=== PATIENT | female | born 1970 | race Caucasian/White ===

== ENCOUNTER 2018-09-05 15:25 | Emergency (ER) | payer MEDICARE, OTHER ==
[~2018-09-05] VITALS: Ht 162.6 cm; Wt 87.5 kg
[2018-09-05 16:16] LABS: AMPHETAMINE SCREEN, URINE NEGATIVE (NEGATIVE); BARBITURATE SCREEN URINE NEGATIVE (NEGATIVE); BENZODIAZEPINES SCREEN URINE POSITIVE (NEGATIVE); CANNABINOID SCREEN, URINE NEGATIVE (NEGATIVE); COCAINE SCREEN URINE NEGATIVE (NEGATIVE); METHADONE STAT NEGATIVE (NEGATIVE); METHAMPHETAMINE SCREEN URINE S NEGATIVE (NEGATIVE); OPIATE SCREEN URINE NEGATIVE (NEGATIVE); OXYCODONE STAT POSITIVE (NEGATIVE); PROPOXYPHENE STAT NEGATIVE (NEGATIVE); TRICYCLIC ANTIDEPRESSANTS SCRE POSITIVE (NEGATIVE)
[2018-09-05 16:18] LABS: BASOPHILS % (AUTO) 0 % (0-10); EOSINOPHILS # (AUTO) 0.2 10^3/uL (0.0-0.3); EOSINOPHILS % (AUTO) 4 % (0-10); HEMATOCRIT 36 % (35-52); LYMPHOCYTES # (AUTO) 1.8 X 10^3 (1.0-4.0); LYMPHOCYTES % (AUTO) 33 % (12-44); MEAN CORPUSCULAR HEMOGLOBIN 30 PG (25-34); MEAN CORPUSCULAR HGB CONC 30 G/DL (32-36); MEAN CORPUSCULAR VOLUME 91 FL (80-99); MEAN PLATELET VOLUME 9.1 FL (7.4-10.4); MONOCYTES # (AUTO) 0.4 X 10^3 (0.0-1.0); MONOCYTES % (AUTO) 6 % (0-12); NEUTROPHILS # (AUTO) 3.1 X 10^3 (1.8-7.8); NEUTROPHILS % (AUTO) 57 % (42-75); PLATELET COUNT 219 10^3/uL (130-400); RED CELL DISTRIBUTION WIDTH 12.6 % (10.0-14.5); WHITE BLOOD COUNT 5.5 10^3/uL (4.3-11.0)
[2018-09-05 16:25] LABS: CLARITY,URINE CLEAR; COLOR,URINE YELLOW; GLUCOSE, URINE (UA) NEGATIVE (NEGATIVE); KETONES,URINE NEGATIVE (NEGATIVE); PH,URINE 5.5 (5-9); PROTEIN,URINE TRACE (NEGATIVE)
[2018-09-05 16:26] LABS: BACTERIA,URINE MODERATE /HPF; BILIRUBIN,URINE NEGATIVE (NEGATIVE); HYALINE CASTS, URINE RARE /LPF; LEUKOCYTE ESTERASE ,URINE NEGATIVE (NEGATIVE); NITRITE,URINE NEGATIVE (NEGATIVE); RBC,URINE 0-2 /HPF; UROBILINOGEN,URINE NORMAL (NORMAL)
[2018-09-05 16:41] LABS: CARBON DIOXIDE 24 MMOL/L (21-32); CHLORIDE 105 MMOL/L (98-107); POTASSIUM 4.3 MMOL/L (3.6-5.0); SODIUM 139 MMOL/L (135-145)
[2018-09-05 16:42] LABS: ACETAMINOPHEN < 10 UG/ML (10-30); ALANINE AMINOTRANSFERASE 6 U/L (0-55); ALBUMIN 3.3 GM/DL (3.2-4.5); ALKALINE PHOSPHATASE 105 U/L (40-136); BILIRUBIN,TOTAL 0.3 MG/DL (0.1-1.0); BUN/CREATININE RATIO 10; GFR ESTIMATED > 60; GLUCOSE 107 MG/DL (70-105); SALICYLATE < 5.0 MG/DL (5.0-20.0); TOTAL PROTEIN 6.8 GM/DL (6.4-8.2)
--- NOTE | 2018-09-05 16:47 | ED General ---
General Chief Complaint: Psych/Social Disorder Stated Complaint: PSYCH EVAL History of Present Illness Date Seen by Provider: Sep 05, 2018 Time Seen by Provider: 16:44 Initial Comments Patient presents emergency department for evaluation of suicidal ideation. 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 She says that she had a prior attempts at killing herself with alcohol and medications. She denies any medical complaints and is in no obvious distress with normal vital signs. Of note she wanted it to be clear that she would have opioids and benzos in her system as she is prescribed his medications. (ЕЛЕНА ARAUJO DO) Allergies and Home Medications Allergies Coded Allergies: Sulfa (Sulfonamide Antibiotics) (Verified Allergy, Unknown, 09/05/18) carbamazepine (Verified Allergy, Unknown, 09/05/18) hydrocodone (Verified Allergy, Unknown, 09/05/18) lurasidone (Verified Allergy, Unknown, 09/05/18) metronidazole (Verified Allergy, Unknown, 09/05/18) Patient Home Medication List Home Medication List Reviewed: Yes (ЕЛЕНА ARAUJO DO) Review of Systems Review of Systems Constitutional: no symptoms reported Psychiatric/Neurological: Depressed (ЕЛЕНА ARAUJO DO) All Other Systems Reviewed Negative Unless Noted: Yes (ЕЛЕНА ARAUJO DO) Past Vbxdcou-Hmhzvr-Yodrjq Hx Patient Social History Recent Foreign Travel: No Contact w/Someone Who Travel: No (ЕЛЕНА ARAUJO DO) Physical Exam Vital Signs Vital Signs - First Documented 09/05/18 15:28 Temp 97.0 Pulse 84 Resp 18 B/P (MAP) 126/87 (100) Pulse Ox 99 (KASSIDY RUTLEDGE DO) Vital Signs Capillary Refill : (ЕЛЕНА ARAUJO DO) Height, Weight, BMI Height: '" Weight: lbs. oz. kg; BMI Method: General Appearance: No Apparent Distress, WD/WN HEENT: PERRL/EOMI Neck: Full Range of Motion Respiratory: Lungs Clear Cardiovascular: Regular Rate, Rhythm Gastrointestinal: Non Tender Extremity: No Pedal Edema Neurologic/Psychiatric: Alert, Oriented x3 Skin: Normal Color, Warm/Dry (ЕЛЕНА ARAUJO DO) Progress/Results/Core Measures Suspected Sepsis SIRS Temperature: Pulse: Respiratory Rate: Laboratory Tests 09/05/18 16:00: White Blood Count 5.5 Blood Pressure / Mean: Laboratory Tests 6/19/19 16:00: Creatinine 0.90, Platelet Count 219, Total Bilirubin 0.3 (ЕЛЕНА ARAUJO DO) Results/Orders Lab Results Laboratory Tests Test 09/05/18 15:40 09/05/18 16:00 Range/Units Urine Color YELLOW Urine Clarity CLEAR Urine pH 5.5 5-9 Urine Specific [place] >=1.030 1.016-1.022 Urine Protein TRACE NEGATIVE Urine Glucose (UA) NEGATIVE NEGATIVE Urine Ketones NEGATIVE NEGATIVE Urine Nitrite NEGATIVE NEGATIVE Urine Bilirubin NEGATIVE NEGATIVE Urine Urobilinogen NORMAL NORMAL MG/DL Urine Leukocyte Esterase NEGATIVE NEGATIVE Urine RBC (Auto) NEGATIVE NEGATIVE Urine RBC 0-2 /HPF Urine WBC NONE /HPF Urine Squamous Epithelial Cells 10-25 H /HPF Urine Crystals NONE /LPF Urine Bacteria MODERATE H /HPF Urine Casts PRESENT /LPF Urine Hyaline Casts RARE /LPF Urine Mucus NEGATIVE /LPF Urine Culture Indicated NO Urine Opiates Screen NEGATIVE NEGATIVE Urine Oxycodone Screen POSITIVE H NEGATIVE Urine Methadone Screen NEGATIVE NEGATIVE Urine Propoxyphene Screen NEGATIVE NEGATIVE Urine Barbiturates Screen NEGATIVE NEGATIVE Ur Tricyclic Antidepressants Screen POSITIVE H NEGATIVE Urine Phencyclidine Screen NEGATIVE NEGATIVE Urine Amphetamines Screen NEGATIVE NEGATIVE Urine Methamphetamines Screen NEGATIVE NEGATIVE Urine Benzodiazepines Screen POSITIVE H NEGATIVE Urine Cocaine Screen NEGATIVE NEGATIVE Urine Cannabinoids Screen NEGATIVE NEGATIVE White Blood Count 5.5 4.3-11.0 10^3/uL Red Blood Count 3.96 L 4.35-5.85 10^6/uL Hemoglobin 12.0 11.5-16.0 G/DL Hematocrit 36 35-52 % Mean Corpuscular Volume 91 80-99 FL Mean Corpuscular Hemoglobin 30 25-34 PG Mean Corpuscular Hemoglobin Concent 30 L 32-36 G/DL Red Cell Distribution Width 12.6 10.0-14.5 % Platelet Count 219 130-400 10^3/uL Mean Platelet Volume 9.1 7.4-10.4 FL Neutrophils (%) (Auto) 57 42-75 % Lymphocytes (%) (Auto) 33 12-44 % Monocytes (%) (Auto) 6 0-12 % Eosinophils (%) (Auto) 4 0-10 % Basophils (%) (Auto) 0 0-10 % Neutrophils # (Auto) 3.1 1.8-7.8 X 10^3 Lymphocytes # (Auto) 1.8 1.0-4.0 X 10^3 Monocytes # (Auto) 0.4 0.0-1.0 X 10^3 Eosinophils # (Auto) 0.2 0.0-0.3 10^3/uL Basophils # (Auto) 0.0 0.0-0.1 10^3/uL Sodium Level 139 135-145 MMOL/L Potassium Level 4.3 3.6-5.0 MMOL/L Chloride Level 105 98-107 MMOL/L Carbon Dioxide Level 24 21-32 MMOL/L Anion Gap 10 5-14 MMOL/L Blood Urea Nitrogen 9 7-18 MG/DL Creatinine 0.90 0.60-1.30 MG/DL Estimat Glomerular Filtration Rate > 60 BUN/Creatinine Ratio 10 Glucose Level 107 H 70-105 MG/DL Calcium Level 9.0 8.5-10.1 MG/DL Corrected Calcium 9.6 8.5-10.1 MG/DL Total Bilirubin 0.3 0.1-1.0 MG/DL Aspartate Amino Transf (AST/SGOT) 17 5-34 U/L Alanine Aminotransferase (ALT/SGPT) 6 0-55 U/L Alkaline Phosphatase 105 40-136 U/L Total Protein 6.8 6.4-8.2 GM/DL Albumin 3.3 3.2-4.5 GM/DL Salicylates Level < 5.0 L 5.0-20.0 MG/DL Acetaminophen Level < 10 L 10-30 UG/ML Serum Alcohol < 10 <10 MG/DL (KASSIDY RUTLEDGE DO) Vital Signs/I&O 09/05/18 15:28 Temp 97.0 Pulse 84 Resp 18 B/P (MAP) 126/87 (100) Pulse Ox 99 (KASSIDY RUTLEDGE DO) Vital Signs/I&O Capillary Refill : (ЕЛЕНА ARAUJO DO) Progress Note : Progress Note Patient is medically cleared from my standpoint so we will have her evaluated from a psychiatric standpoint. (ЕЛЕНА ARAUJO DO) Departure Impression Primary Impression: Suicidal ideation Disposition: 02 XFER SHT-TRM HOSP Condition: Stable Transfer Time Spoke to Accepting Phy: 23:19 Transfer Progress Notes Patient resected by Dr. Ventura at [facility] Method of Transfer: EMS (KASSIDY RUTLEDGE DO) Departure-Patient Inst. Referrals: NO,LOCAL PHYSICIAN (PCP) Primary Care Physician ЕЛЕНА ARAUJO DO Sep 05, 2018 16:47 KASSIDY RUTLEDGE DO Sep 05, 2018 23:20
--- NOTE | 2018-09-05 17:05 | NUR ---
[facility] is being contacted at this time for screening. Pt information being provided at this time.
--- NOTE | 2018-09-05 17:10 | NUR ---
Tracking number from [facility] is [id number]. Labs, face sheet, and med list to be faxed to [phone].
--- NOTE | 2018-09-05 18:00 | NUR ---
[facility] screener is screening the patient via the mental health laptop.
--- NOTE | 2018-09-05 19:00 | NUR ---
Patient information faxed to [facility] at this time.
--- NOTE | 2018-09-05 22:09 | NUR ---
CONTACTED [facility] AND REPORTED THAT THE DOCTOR REQUESTED AN UPDATE. YOSELYN REPORTED THAT THEY WOULD POSSIBLY TAKE HER TOMORROW BUT THEY HAD NO BEDS AT THIS TIME. [facility] WAS INFORMED THEY NEEDED TO LOCATE A FACILITY THIS IS A FREE STANDING ER AND WE ARE NOT TO JUST SIT ON THE PATIENTS. THIS RN WAS INFORMED THEY WOULD WORK ON PLACEMENT.
--- NOTE | 2018-09-05 22:40 | NUR ---
CONTACTED [facility] FOR THE PATIENT AND THEY HAVE NO AVAILABLE BEDS AT THIS TIME.
--- NOTE | 2018-09-05 22:54 | NUR ---
CONTACTED [facility] AND DOCTOR RUTLEDGE IS TALKING WITH THEIR DOCTOR THEY HAVE A BED.
--- NOTE | 2018-09-06 00:33 | NUR ---
CALLED [facility] AGAIN FOR AN UPDATE ON TRANSPORTATION TO [facility]. NO RESULTS AT THIS TIME.
[2018-09-06] MEDS ORDERED: DIAZEPAM 5 MG (VALIUM) TABLET PO ONE (00:45)
[2018-09-06] MEDS ORDERED: oxyCODONE/APAP 5/325MG (PERCOCET 5) TABLET PO ONE (00:45)
[2018-09-06 02:50] VITALS: BP 115/65
== END 2018-09-06 03:20 | disposition short-term general hospital (02) ==
LOC: EDUNIT# 15:25 → ER FS 15:26
DX: R45.851 Suicidal ideations (principal); F32.9 Major depressive disorder, single episode, unspecified; Z88.2 Allergy status to sulfonamides; Z88.5 Allergy status to narcotic agent; Z88.8 Allergy status to other drugs, medicaments and biological substances
CPT/HCPCS: 36415; 80053; 80306; 80320; 80329; 81000; 85025; 93005